=== PATIENT | female | born 1940 | race Caucasian/White ===

== ENCOUNTER 2018-10-27 17:47 | Emergency (ER) | payer MEDICARE, MEDICAID ==
[~2018-10-27] VITALS: Ht 165.1 cm; Wt 80.4 kg
[2018-10-27 18:36] VITALS: BP 134/87
[2018-10-27] MEDS ORDERED: LORazepam 1 MG tablet PO ONE (19:15)
[2018-10-27 19:31] LABS: COLOR,URINE YELLOW (Yellow); GLUCOSE, URINE NEGATIVE (Neg); KETONES,URINE NEGATIVE (Neg); LEUKOCYTE ESTERASE ,URINE MODERATE (Neg); NITRITES, URINE NEGATIVE (Neg); OCCULT BLOOD,URINE NEGATIVE (Neg); PROTEIN,URINE TRACE mg/dl (Neg); UROBILINOGEN,URINE 0.2 E.U/dL (0.2-1.0)
[2018-10-27 19:35] LABS: UA COLLECTION TYPE CLN CATCH MIDSTREAM
[2018-10-27 19:36] LABS: CLARITY,URINE SLIGHTLY CLOUDY (Clear)
[2018-10-27 19:38] LABS: BACTERIA,URINE 2+ /HPF (Neg); RBC,URINE NONE SEEN /HPF (0-2); SQUAMOUS EPITHELIAL CELL,UR MODERATE /LPF (FEW); WBC,URINE 20-30 /HPF (0-4)
[2018-10-27] MEDS ORDERED: BACDS PO (19:42)
[2018-10-27] MEDS ORDERED: LORA-269 PO (19:42)
== END 2018-10-27 19:53 | disposition home or self-care (01) ==
LOC: ER 17:48
DX: F41.0 Panic disorder [episodic paroxysmal anxiety] (principal); N39.0 Urinary tract infection, site not specified; Z87.891 Personal history of nicotine dependence
CPT/HCPCS: 81001; 87088; 93005; 99284

== ENCOUNTER 2021-12-19 15:21 | Emergency (ER) | payer MEDICAID, MEDICARE ==
[~2021-12-19] VITALS: Ht 165.1 cm; Wt 63.6 kg
[~2021-12-19 15:21] MED LIST: LORA-269 PO
[2021-12-19 16:44] LABS: BASOPHILS % (AUTO) 0.5 % (0-1); EOSINOPHILS # (AUTO) 0.2 X10'3 (0-0.9); EOSINOPHILS % (AUTO) 2.3 % (0-6); HEMATOCRIT 35.2 % (35.0-45.0); HEMOGLOBIN 11.6 g/dl (12.0-16.0); LYMPHOCYTES # (AUTO) 1.1 X10'3 (1.1-4.8); LYMPHOCYTES % (AUTO) 13.5 % (21-51); MEAN CORPUSCULAR HEMOGLOBIN 30.6 PG (27.0-31.0); MEAN CORPUSCULAR VOLUME 92.7 FL (78-98); MEAN PLATELET VOLUME 8.5 FL (7.4-10.4); MONOCYTES # (AUTO) 0.4 X10'3 (0-0.9); MONOCYTES % (AUTO) 5.5 % (2-12); NEUTROPHILS # (AUTO) 6.3 X10'3 (1.8-7.7); NEUTROPHILS % (AUTO) 78.2 % (42-75); PLATELET COUNT 329 X10'3 (140-440); RED BLOOD COUNT 3.79 X10'6 (4.20-5.60); RED CELL DISTRIBUTION WIDTH 13.2 % (11.5-14.5)
[2021-12-19 16:48] LABS: ALANINE AMINOTRANSFERASE 24 U/L (12-78); ALBUMIN 3.5 G/DL (3.4-5.0); ALBUMIN/GLOBULIN RATIO 0.9 (1.1-1.5); ALKALINE PHOSPHATASE 226 IU/L (46-116); ANION GAP 11 (8-16); ASPARTATE AMINO TRANSFERASE 20 U/L (10-37); BILIRUBIN,TOTAL 0.4 MG/DL (0.1-1.0); BLOOD UREA NITROGEN 36 MG/DL (7-18); BUN/CREATININE RATIO 19.7 (6.6-38.0); CHLORIDE 103 MMOL/L (99-107); CREATININE 1.83 MG/DL (0.40-0.90); GLUCOSE 116 MG/DL (70-104); POTASSIUM 4.3 MMOL/L (3.5-5.1); SODIUM 141 MMOL/L (135-145); TOTAL CARBON DIOXIDE 27.4 MMOL/L (24-32); TOTAL PROTEIN 7.4 G/DL (6.4-8.2); eGFR 27 ML/MIN
[2021-12-19 17:45] VITALS: BP 158/70
--- NOTE | 2021-12-19 17:45 | NUR ---
cleared pt for d/c. Daughter in law at bedside to take pt home. Pt to car in W/C.
== END 2021-12-19 17:47 | disposition home or self-care (01) ==
LOC: ER 15:21
DX: G30.9 Alzheimer's disease, unspecified (principal); E78.00 Pure hypercholesterolemia, unspecified; Z86.69 Personal history of other diseases of the nervous system and sense organs; Z79.899 Other long term (current) drug therapy; W19.XXXA Unspecified fall, initial encounter; Y93.89 Activity, other specified; Y92.89 Other specified places as the place of occurrence of the external cause; Y99.8 Other external cause status
CPT/HCPCS: 36415; 80053; 82948; 83880; 84484; 85025; 93005; 99284